=== PATIENT | female | born 1990 | race Two or more races ===

== ENCOUNTER 2021-10-10 11:17 | Outpatient (CLI) | payer OTHER | END 2021-10-10 11:18 | disposition home or self-care (01) | LOC: RAD 11:17 | PROVIDERS: ATTEND Internal Medicine | DX: R10.10 Upper abdominal pain, unspecified (principal); Z00.00 Encounter for general adult medical examination without abnormal findings; E78.1 Pure hyperglyceridemia; E55.9 Vitamin D deficiency, unspecified; Z13.29 Encounter for screening for other suspected endocrine disorder; E04.1 Nontoxic single thyroid nodule; Z72.51 High risk heterosexual behavior ==